=== PATIENT | male | born 1960 | race Caucasian/White ===

== ENCOUNTER 2025-03-16 17:42 | Emergency (ER) | payer MEDICARE, OTHER, SELFPAY ==
--- OUTSIDE RECORDS SUMMARY | 2003-07-04 19:00 | XMS_ITS | Continuity of Care Document ---
Author Name [facility] Address [address] [place] [address] Organization [facility] Care Team Providers Care Lens Blank Gauger Name Role Phone [facility] Unavailable Unavailable Problems Problem Status Onset Date Problem Type Date of Resolution Comments Source Atrial fibrillation (disorder) Active Condition Body mass index index 25-29 - overweight (finding) Active Condition Erectile dysfunction Active Condition History of - atrial fibrillation (context-dependent category) Active Condition Hyperlipidemia (disorder) Active Condition Patient encounter status (finding) Active Condition History of polyp of colon (situation) Active Condition 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
--- OUTSIDE RECORDS SUMMARY | 2023-09-22 02:30 | XMS_ITS ---
Author Organization [facility] Address [address] [place], [place] [id number] Care Team Providers Care Chainman Name Role Phone Titi Piña Primary Care Provider [phone] Maxime Dao [phone] Social History Sex Assigned At : Social History Observation Description Sex Assigned At Male Encounters Encounter Location Date Provider Diagnosis [facility] [address] [place] [address] 09/22/2023 Maxime Dao Plan Of Treatment Next Appt Details Provider Name:Maxime Dao, 06/05/2025 09:00:00 AM, [address] [place], [address], Progress Notes * Faina KEY HDOB:1959 (64 yo M)Acc No.[id number]:09/22/2023 Patient: Jennifer LOWEFaina NICKERSON Salvador Provider: Estevan Dao DMD :1960 A ge:63 Y S ex:Male Date:09/22/2023 Address:[address] [place] [id number] Pcp:Titi Piña Subjective: * Chief Complaints: * * Medical History: Objective: * Vitals: Assessment: Plan: * Treatment: * Billing Information: * Visit Code: * Procedure Codes: * Electronic signature of Bhupinder Dao DMD on 03/16/2025 at 06:02 PM CDT Sign off status: Pending * Provider: Estevan Dao DMD Date: 0 09/22/2023 Generated for Tasha Wills/Cristina on: 0 03/16/2025 06:02 PM CDT
--- OUTSIDE RECORDS SUMMARY | 2024-11-15 23:50 | XMS_ITS ---
Author Organization [facility] Address [address] [place], [place] [id number] Care Team Providers Care Double End Sewer Name Role Phone Titi Piña Primary Care Provider Maxime Dao [phone] Social History Sex Assigned At : Social History Observation Description Sex Assigned At Male Encounters Encounter Location Date Provider Diagnosis [facility] [address] [place] [address] 11/16/2024 Maxime Dao Plan Of Treatment Next Appt Details Provider Name:Maxime Dao, 06/05/2025 09:00:00 AM, [address] [place], [address], Progress Notes * Faina KEY HDOB:1959 (64 yo M)Acc No.[id number]:11/16/2024 Patient: Jennifer LOWEFaina NICKERSON Provider: Estevan Dao DMD :1960 A ge:64 Y S ex:Male Date:11/16/2024 Address:[address] [place] [phone] Pcp:Titi Piña Subjective: * Chief Complaints: * * Medical History: Objective: * Vitals: Assessment: Plan: * Treatment: * Billing Information: * Visit Code: * Procedure Codes: * Electronic signature of Bhupinder Dao DMD on 03/16/2025 at 06:02 PM CDT Sign off status: Pending * Provider: Estevan Dao DMD Date: 0 11/16/2024 Generated for Tasha Wills/Cristina on: 0 03/16/2025 06:02 PM CDT
--- OUTSIDE RECORDS SUMMARY | 2024-12-06 02:00 | XMS_ITS ---
Author Organization [facility] Address [address] [place], [place] [address] Care Team Providers Care Helmet Binder Name Role Phone Titi Piña Primary Care Provider [phone] Maxime Dao [phone] Social History Sex Assigned At : Social History Observation Description Sex Assigned At Male Encounters Encounter Location Date Provider Diagnosis [facility] [address] [place] [address] 12/06/2024 Maxime Dao Plan Of Treatment Next Appt Details Provider Name:Maxime Dao, 06/05/2025 09:00:00 AM, [address] [place], [address], Progress Notes * Faina KEY HDOB:1959 (64 yo M)Acc No.[id number]:12/06/2024 Patient: Jennifer LOWEFaina NICKERSON Provider: Estevan Dao DMD :1960 A ge:64 Y S ex:Male Date:12/06/2024 Address:[address] [place] [phone] Pcp:Titi Piña Subjective: * Chief Complaints: * * Medical History: Objective: * Vitals: Assessment: Plan: * Treatment: * Billing Information: * Visit Code: * Procedure Codes: * Electronic signature of Bhupinder Dao DMD on 03/16/2025 at 06:02 PM CDT Sign off status: Pending * Provider: Estevan Dao DMD Date: 12/06/2024 Generated for Tasha Wills/Cristina on: 0 03/16/2025 06:02 PM CDT
[2025-03-16] VITALS (7 sets, daily range): BP systolic 114–138; BP diastolic 68–83; PULSE 98–106; RESP 16–18; TEMP 37.2; O2SAT 96–99
--- NOTE | 2025-03-16 17:49 | CTR_ITS ---
PROCEDURE INFORMATION: Exam: CT Cervical Spine Without Contrast Exam date and time: 03/16/2025 6:02 PM Age: 64 years old Clinical indication: Injury or trauma; Syncope with fall from standing. TECHNIQUE: Imaging protocol: Computed tomography of the cervical spine without contrast. Radiation optimization: All CT scans at this facility use at least one of these dose optimization techniques: automated exposure control; mA and/or kV adjustment per patient size (includes targeted exams where dose is matched to clinical indication); or iterative reconstruction. COMPARISON: CR (CHEST, ) 03/16/2025 5:56 PM RADIATION DOSE METRICS: Total DLP (mGy-cm): 228.7 FINDINGS: Bones: No acute fracture. Normal alignment. Multilevel degenerative changes in the cervical spine with facet arthropathy, uncovertebral hypertrophy and mild multilevel disc height loss. There is up to mild spinal canal narrowing at the C5-C6 level. There is up to severe neural foraminal narrowing of the right C3-C4 neural foramen. Multilevel moderate neural foraminal narrowing. Lungs: Lung apices are normal. Soft tissues: 2.1 cm right thyroid nodule. CT/CT cervical spin wo con* [id number] IMPRESSION: 1. No acute cervical spine fracture. 2. There is a 2.1 cm right thyroid nodule. Recommend further evaluation with dedicated thyroid ultrasound if not previously completed. COMMENTS: Consistent with the [employer]'s Incidental Findings Committee white paper (J Am Mariola Radiol 2015): In patients aged 35 years and older with an incidental thyroid nodule equal to or greater than 1.[address], MRI or extrathyroidal US, further evaluation with dedicated thyroid US is recommended for patients with normal life expectancy and without comorbidities. For smaller nodules without suspicious features, no further evaluation or follow up is recommended.
--- NOTE | 2025-03-16 17:50 | CTR_ITS ---
PROCEDURE INFORMATION: Exam: CT Head Without Contrast Exam date and time: 03/16/2025 6:02 PM Age: 64 years old Clinical indication: Injury or trauma; Syncope with fall from standing. TECHNIQUE: Imaging protocol: Computed tomography of the head without contrast. Radiation optimization: All CT scans at this facility use at least one of these dose optimization techniques: automated exposure control; mA and/or kV adjustment per patient size (includes targeted exams where dose is matched to clinical indication); or iterative reconstruction. COMPARISON: CT cervical spin wo con* [id number] 03/16/2025 6:02 PM RADIATION DOSE METRICS: Total DLP (mGy-cm): 1179.68 FINDINGS: Brain: There is a 5 mm hyperattenuating focus in the left frontal white matter with surrounding hypoattenuation. No loss of funk-white differentiation. No mass effect. Cerebral ventricles: No ventriculomegaly. Paranasal sinuses: Visualized sinuses are unremarkable. No fluid levels. Mastoid air cells: Visualized mastoid air cells are well aerated. Bones: Unremarkable. No acute fracture. Soft tissues: Unremarkable. CT/CT head wo con* [id number] IMPRESSION: There is a 5 mm hyperattenuating focus in the left frontal white matter with surrounding hypoattenuation. This is indeterminate on CT. Differential includes small hemorrhage with surrounding edema, cavernous malformation, or underlying hemorrhagic neoplasm/metastasis. Recommend MRI brain with and without contrast for further characterization.
--- NOTE | 2025-03-16 17:51 | ED_ITS ---
Documented by User: LUCIANA Montes De Oca 03/16/25 22:18 HPI - Syncope 2 General: Chief Complaint: Syncope Stated Complaint: syncopal episode Time Seen by Provider: 03/16/25 17:48 History of Present Illness: Patient is a 64-year-old male with history of previous atrial fibrillation, status post ablation, presents to the emergency room due to full syncope, extended for 10-15 minutes. Patient was cooking in his camper up to the water and sewage, when bystanders noted he had a full LOC, estimated to be 10-15 minutes. Patient does not recall the events, and stated he did not have dizziness, lightheadedness, or any other symptoms such as chest pain, recent cold or illness, nausea, vomiting. He stated he was hooking up the lines for his camper, and then was on the ground. He is unsure how he fell. He does not have a complaints of any pain at this time. Patient has not had further issues with his A-fib since ablation. He is on sildenafil for ED, with last dose just over 2 days ago. PFSH ED 2 PFSH: Medical History (Updated 03/16/25 @ 18:41 by Suman Cherry DO) Atrial fibrillation Course 2 Vital Signs: Vital signs: Vital Signs Temperature 98.9 F 03/16/25 17:49 Pulse Rate 98 03/16/25 20:56 Respiratory Rate 16 03/16/25 20:56 Blood Pressure 121/78 03/16/25 20:56 Pulse Oximetry 99 03/16/25 20:56 Oxygen Delivery Me thod Room Air 03/16/25 20:56 MDM - Syncope Lab Data 03/16/25 18:17 03/16/25 18:17 Radiology Impressions Cervical Spine CT 03/16/25 17:49 IMPRESSION: 1. No acute cervical spine fracture. 2. There is a 2.1 cm right thyroid nodule. Recommend further evaluation with dedicated thyroid ultrasound if not previously completed. COMMENTS: Consistent with the [employer]'s Incidental Findings Committee white paper (J Am Mariola Radiol 2015): In patients aged 35 years and older with an incidental thyroid nodule equal to or greater than 1.[address], MRI or extrathyroidal US, further evaluation with dedicated thyroid US is recommended for patients with normal life expectancy and without comorbidities. For smaller nodules without suspicious features, no further evaluation or follow up is recommended. Head CT 03/16/25 17:50 IMPRESSION: There is a 5 mm hyperattenuating focus in the left frontal white matter with surrounding hypoattenuation. This is indeterminate on CT. Differential includes small hemorrhage with surrounding edema, cavernous malformation, or underlying hemorrhagic neoplasm/metastasis. Recommend MRI brain with and without contrast for further characterization. Chest X-Ray 03/16/25 17:55 IMPRESSION: No acute findings. Laboratory Results WBC 16.18 10^3/uL (3.29-11.43) H 03/16/25 18:17 RBC 4.08 10^6/uL (3.85-5.65) 03/16/25 18:17 Hgb 13.50 g/dL (11.27-16.99) 03/16/25 18:17 Hct 39.1 % (37-53) 03/16/25 18:17 MCV 95.8 fl (82-101) 03/16/25 18:17 MCH 33.1 pg (27-33) H 03/16/25 18:17 MCHC 34.5 g/dL (30-55) 03/16/25 18:17 RDW 12.4 % (12.1-15.1) 03/16/25 18:17 Plt Count 258 10^3/cmm (157-399) 03/16/25 18:17 MPV 9.2 fL (7.4-10.4) 03/16/25 18:17 Neut % (Auto) 86.7 % 03/16/25 18:17 Lymph % (Auto) 6.7 % 03/16/25 18:17 [place] % (Auto) 5.8 % 03/16/25 18:17 Eos % (Auto) 0.2 % 03/16/25 18:17 Baso % (Auto) 0.2 % 03/16/25 18:17 Neut # (Auto) 14.00 10^3/uL (1.8-7.7) H 03/16/25 18:17 Lymph # (Auto) 1.1 10^3/uL (0.8-4.8) 03/16/25 18:17 [place] # (Auto) 0.9 10^3/uL (0.2-0.9) 03/16/25 18:17 Eos # (Auto) 0.0 10^3/uL (0.0-0.8) 03/16/25 18:17 Baso # (Auto) 0.0 10^3/uL (0.0-0.1) 03/16/25 18:17 Nucleated RBC % (auto) 0 % 03/16/25 18:17 Nucleated RBCs # 0.0 /100WBC 03/16/25 18:17 Sodium 139 mmol/L (136-145) 03/16/25 18:17 Potassium 3.8 mmol/L (3.5-5.1) 03/16/25 18:17 Chloride 105 mmol/L (98-107) 03/16/25 18:17 Carbon Dioxide 22 mmol/L (22-29) 03/16/25 18:17 Anion Gap 15.8 (5-19) 03/16/25 18:17 BUN 17 mg/dL (8-23) 03/16/25 18:17 Creatinine 1.0 mg/dL (0.7-1.2) 03/16/25 18:17 GFR Calculation 74.8 mL/min (90-130) L 03/16/25 18:17 Glucose 103 mg/dL (65-115) 03/16/25 18:17 Calculated Osmolality 290 mOsm/kg (285-295) 03/16/25 18:17 Lactic Acid 2.1 mmol/L (0.5-2.2) 03/16/25 18:17 Lactic Acid (Sepsis) 0.7 mmol/L (0.5-2.2) 03/16/25 21:17 Calcium 9.2 mg/dL (8.5-10.5) 03/16/25 18:17 Magnesium 2.8 mg/dL (1.7-2.3) H 03/16/25 18:17 Total Bilirubin 0.3 mg/dL (0.15-1.2) 03/16/25 18:17 AST 22 U/L (0-40) 03/16/25 18:17 ALT 25 U/L (0-41) 03/16/25 18:17 Alkaline Phosphatase 72 U/L (40-130) 03/16/25 18:17 Creatine Kinase 114 U/L (39-308) 03/16/25 18:17 Troponin T Baseline 8 ng/L (0-15) 03/16/25 18:17 Troponin T 120 Minute 11.12 ng/L (0-15) 03/16/25 20:07 Delta Troponin T 3.12 ABS# (0-10) 03/16/25 20:07 Total Protein 7.2 g/dL (6.6-8.7) 03/16/25 18:17 Albumin 4.6 g/dL (3.5-5.2) 03/16/25 18:17 Globulin 2.6 g/dL (1.3-4.6) 03/16/25 18:17 TSH 2.26 uIU/mL (0.27-4.20) 03/16/25 18:17 Discharge Plan Discharge Patient Disposition: Xfer Short-Term Hosp Clinical Impression: Syncope and collapse Condition: Stable Print Language: French Coding Level of Care Code ED Ell Teacher for Chg Fwd Documented by User: Suman Cherry DO 03/17/25 07:23 HPI - Syncope 2 General: Chief Complaint: Syncope Stated Complaint: syncopal episode Time Seen by Provider: 03/16/25 17:48 History of Present Illness: 64-year-old male presents emergency room via EMS. He had a syncopal episode while he was setting up a camper this afternoon. He had a downtime of around 10+ minutes. He admitted bending over standing up working on setting up a camper when he suddenly lost consciousness he does not recall what happened. Does not recall if he hit his head. He denies any chest or abdominal pain. He has not recently been ill. He states he has not had episodes like this before he has had a previous episode atrial fibrillation and had ablation. He is on multiple medications no changes recently. Associated symptoms: Deny abdominal pain, chest pain or fever(s) Review of Systems 2 Const: Denies: fever(s) or chills Card: Denies: chest pain Resp: Denies: dyspnea GI: Denies: abdominal pain Musc: Denies: neck pain or back pain Skin/Breast: Denies: rash PFSH ED 2 PFSH: Medical History (Updated 03/16/25 @ 18:41 by Suman Cherry DO) Atrial fibrillation Physical Exam 2 Const: GENERAL APPEARANCE: cooperative ORIENTATION/CONSCIOUSNESS: Yes awake, Yes oriented to person, Yes oriented to place and Yes oriented to time HENMT: COMMON NORMALS: normocephalic, atraumatic and hearing grossly normal bilaterally HEAD & SCALP: normocephalic and atraumatic Resp: COMMON NORMALS: normal respiratory effort, No retractions, No use of accessory muscles and clear to auscultation bilaterally AUSCULTATION: clear to auscultation bilaterally Cardio: COMMON NORMALS: regular rate, regular rhythm and No murmurs present (Cardio) RATE: regular rate RHYTHM: regular rhythm GI: COMMON NORMALS: Soft to palpation and No hepatosplenomegaly present A USCULTATION: Yes normoactive bowel sounds PALPATION: Yes Soft to palpation, No Tenderness to palpation present (GI), No Guarding due to palpation present (GI) and Yes No hepatosplenomegaly present Extremity: COMMON NORMALS: normal to inspection, capillary refill normal, no clubbing, cyanosis or edema, no calf tenderness and no pedal edema Neuro: SENSORIUM/ORIENTATION: Yes oriented to person, Yes oriented to place and Yes oriented to time Skin: COMMON NORMALS: no rashes or lesions noted GENERAL SKIN EXAM: no rashes or lesions noted Course 2 Vital Signs: Vital signs: Vital Signs Temperature 98.9 F 03/16/25 17:49 Pulse Rate 98 03/16/25 20:56 Respiratory Rate 16 03/16/25 20:56 Blood Pressure 121/78 03/16/25 20:56 Pulse Oximetry 99 03/16/25 20:56 Oxygen Delivery Me thod Room Air 03/16/25 20:56 MDM - Syncope Medical Decision Making Patient never had a postictal phase no believe he had a seizure. His mention that he was hooking up electricity was no entrance or exit wounds of electrical robin and no believe that was the case he had been bending over and standing up quite a bit is possible he simply had a vasovagal orthostatic episode. Seems little unusual he was down along he has not had any chest pain to this point. Imaging pending placement observation to further evaluate. Patient is agreeable. 64-year-old gentleman checked out to me at shift change. CT shows a 5 mm area of hyperattenuation in the left frontal lobe with some surrounding hypoattenuation. MRI is suggested to rule out small acute hemorrhage. We have no availability of MRI this weekend. We have no neurology in house. I spoke with neurology at [facility], recommendations are blood pressure less than 140/90, transfer to their ER for emergent MRI of the brain, CTA of the head and neck, and neurology versus neurosurgery consultation. The patient is agreeable to transfer. My counterpart in the ER accepts Medical Records I reviewed the patient's medical records. Lab Data I reviewed the patient's lab results. 03/16/25 18:17 03/16/25 18:17 Radiology Impressions Cervical Spine CT 03/16/25 17:49 IMPRESSION: 1. No acute cervical spine fracture. 2. There is a 2.1 cm right thyroid nodule. Recommend further evaluation with dedicated thyroid ultrasound if not previously completed. COMMENTS: Consistent with the [employer] [employer]'s Incidental Findings Committee white paper (J Am Mariola Radiol 2015): In patients aged 35 years and older with an incidental thyroid nodule equal to or greater than 1.[address], MRI or extrathyroidal US, further evaluation with dedicated thyroid US is recommended for patients with normal life expectancy and without comorbidities. For smaller nodules without suspicious features, no further evaluation or follow up is recommended. Head CT 03/16/25 17:50 IMPRESSION: There is a 5 mm hyperattenuating focus in the left frontal white matter with surrounding hypoattenuation. This is indeterminate on CT. Differential includes small hemorrhage with surrounding edema, cavernous malformation, or underlying hemorrhagic neoplasm/metastasis. Recommend MRI brain with and without contrast for further characterization. Chest X-Ray 03/16/25 17:55 IMPRESSION: No acute findings. Laboratory Results WBC 16.18 10^3/uL (3.29-11.43) H 03/16/25 18:17 RBC 4.08 10^6/uL (3.85-5.65) 03/16/25 18:17 Hgb 13.50 g/dL (11.27-16.99) 03/16/25 18:17 Hct 39.1 % (37-53) 03/16/25 18:17 MCV 95.8 fl (82-101) 03/16/25 18:17 MCH 33.1 pg (27-33) H 03/16/25 18:17 MCHC 34.5 g/dL (30-55) 03/16/25 18:17 RDW 12.4 % (12.1-15.1) 03/16/25 18:17 Plt Count 258 10^3/cmm (157-399) 03/16/25 18:17 MPV 9.2 fL (7.4-10.4) 03/16/25 18:17 Neut % (Auto) 86.7 % 03/16/25 18:17 Lymph % (Auto) 6.7 % 03/16/25 18:17 [place] % (Auto) 5.8 % 03/16/25 18:17 Eos % (Auto) 0.2 % 03/16/25 18:17 Baso % (Auto) 0.2 % 03/16/25 18:17 Neut # (Auto) 14.00 10^3/uL (1.8-7.7) H 03/16/25 18:17 Lymph # (Auto) 1.1 10^3/uL (0.8-4.8) 03/16/25 18:17 [place] # (Auto) 0.9 10^3/uL (0.2-0.9) 03/16/25 18:17 Eos # (Auto) 0.0 10^3/uL (0.0-0.8) 03/16/25 18:17 Baso # (Auto) 0.0 10^3/uL (0.0-0.1) 03/16/25 18:17 Nucleated RBC % (auto) 0 % 03/16/25 18:17 Nucleated RBCs # 0.0 /100WBC 03/16/25 18:17 Sodium 139 mmol/L (136-145) 03/16/25 18:17 Potassium 3.8 mmol/L (3.5-5.1) 03/16/25 18:17 Chloride 105 mmol/L (98-107) 03/16/25 18:17 Carbon Dioxide 22 mmol/L (22-29) 03/16/25 18:17 Anion Gap 15.8 (5-19) 03/16/25 18:17 BUN 17 mg/dL (8-23) 03/16/25 18:17 Creatinine 1.0 mg/dL (0.7-1.2) 03/16/25 18:17 GFR Calculation 74.8 mL/min (90-130) L 03/16/25 18:17 Glucose 103 mg/dL (65-115) 03/16/25 18:17 Calculated Osmolality 290 mOsm/kg (285-295) 03/16/25 18:17 Lactic Acid 2.1 mmol/L (0.5-2.2) 03/16/25 18:17 Lactic Acid (Sepsis) 0.7 mmol/L (0.5-2.2) 03/16/25 21:17 Calcium 9.2 mg/dL (8.5-10.5) 03/16/25 18:17 Magnesium 2.8 mg/dL (1.7-2.3) H 03/16/25 18:17 Total Bilirubin 0.3 mg/dL (0.15-1.2) 03/16/25 18:17 AST 22 U/L (0-40) 03/16/25 18:17 ALT 25 U/L (0-41) 03/16/25 18:17 Alkaline Phosphatase 72 U/L (40-130) 03/16/25 18:17 Creatine Kinase 114 U/L (39-308) 03/16/25 18:17 Troponin T Baseline 8 ng/L (0-15) 03/16/25 18:17 Troponin T 120 Minute 11.12 ng/L (0-15) 03/16/25 20:07 Delta Troponin T 3.12 ABS# (0-10) 03/16/25 20:07 Total Protein 7.2 g/dL (6.6-8.7) 03/16/25 18:17 Albumin 4.6 g/dL (3.5-5.2) 03/16/25 18:17 Globulin 2.6 g/dL (1.3-4.6) 03/16/25 18:17 TSH 2.26 uIU/mL (0.27-4.20) 03/16/25 18:17 Discharge Plan Discharge Patient Disposition: Xfer Short-Term Hosp Clinical Impression: Syncope and collapse Condition: Stable Print Language: French Coding Level of Care Code ED Ell Teacher for Chg Fwd Documented by User: Eagle Camara DO 03/16/25 22:32 HPI - Syncope 2 General: Chief Complaint: Syncope Stated Complaint: syncopal episode Time Seen by Provider: 03/16/25 17:48 PFSH ED 2 PFSH: Medical History (Updated 03/16/25 @ 18:41 by Suman Cherry DO) Atrial fibrillation Course 2 Vital Signs: Vital signs: Vital Signs Temperature 98.9 F 03/16/25 17:49 Pulse Rate 98 03/16/25 20:56 Respiratory Rate 16 03/16/25 20:56 Blood Pressure 121/78 03/16/25 20:56 Pulse Oximetry 99 03/16/25 20:56 Oxygen Delivery Me thod Room Air 03/16/25 20:56 MDM - Syncope Medical Decision Making Patient never had a postictal phase no believe he had a seizure. His mention that he was hooking up electricity was no entrance or exit wounds of electrical robin and no believe that was the case he had been bending over and standing up quite a bit is possible he simply had a vasovagal orthostatic episode. Seems little unusual he was down along he has not had any chest pain to this point. Placement observation to further evaluate. Patient is agreeable. 64-year-old gentleman checked out to me at shift change. CT shows a 5 mm area of hyperattenuation in the left frontal lobe with some surrounding hypoattenuation. MRI is suggested to rule out small acute hemorrhage. We have no availability of MRI this weekend. We have no neurology in house. I spoke with neurology at [facility], recommendations are blood pressure less than 140/90, transfer to their ER for emergent MRI of the brain, CTA of the head and neck, and neurology versus neurosurgery consultation. The patient is agreeable to transfer. My counterpart in the ER accepts Lab Data 03/16/25 18:17 03/16/25 18:17 Radiology Impressions Cervical Spine CT 03/16/25 17:49 IMPRESSION: 1. No acute cervical spine fracture. 2. There is a 2.1 cm right thyroid nodule. Recommend further evaluation with dedicated thyroid ultrasound if not previously completed. COMMENTS: Consistent with the [employer] [employer]'s Incidental Findings Committee white paper (J Am Mariola Radiol 2015): In patients aged 35 years and older with an incidental thyroid nodule equal to or greater than 1.[address], MRI or extrathyroidal US, further evaluation with dedicated thyroid US is recommended for patients with normal life expectancy and without comorbidities. For smaller nodules without suspicious features, no further evaluation or follow up is recommended. Head CT 03/16/25 17:50 IMPRESSION: There is a 5 mm hyperattenuating focus in the left frontal white matter with surrounding hypoattenuation. This is indeterminate on CT. Differential includes small hemorrhage with surrounding edema, cavernous malformation, or underlying hemorrhagic neoplasm/metastasis. Recommend MRI brain with and without contrast for further characterization. Chest X-Ray 03/16/25 17:55 IMPRESSION: No acute findings. Laboratory Results WBC 16.18 10^3/uL (3.29-11.43) H 03/16/25 18:17 RBC 4.08 10^6/uL (3.85-5.65) 03/16/25 18:17 Hgb 13.50 g/dL (11.27-16.99) 03/16/25 18:17 Hct 39.1 % (37-53) 03/16/25 18:17 MCV 95.8 fl (82-101) 03/16/25 18:17 MCH 33.1 pg (27-33) H 03/16/25 18:17 MCHC 34.5 g/dL (30-55) 03/16/25 18:17 RDW 12.4 % (12.1-15.1) 03/16/25 18:17 Plt Count 258 10^3/cmm (157-399) 03/16/25 18:17 MPV 9.2 fL (7.4-10.4) 03/16/25 18:17 Neut % (Auto) 86.7 % 03/16/25 18:17 Lymph % (Auto) 6.7 % 03/16/25 18:17 [place] % (Auto) 5.8 % 03/16/25 18:17 Eos % (Auto) 0.2 % 03/16/25 18:17 Baso % (Auto) 0.2 % 03/16/25 18:17 Neut # (Auto) 14.00 10^3/uL (1.8-7.7) H 03/16/25 18:17 Lymph # (Auto) 1.1 10^3/uL (0.8-4.8) 03/16/25 18:17 [place] # (Auto) 0.9 10^3/uL (0.2-0.9) 03/16/25 18:17 Eos # (Auto) 0.0 10^3/uL (0.0-0.8) 03/16/25 18:17 Baso # (Auto) 0.0 10^3/uL (0.0-0.1) 03/16/25 18:17 Nucleated RBC % (auto) 0 % 03/16/25 18:17 Nucleated RBCs # 0.0 /100WBC 03/16/25 18:17 Sodium 139 mmol/L (136-145) 03/16/25 18:17 Potassium 3.8 mmol/L (3.5-5.1) 03/16/25 18:17 Chloride 105 mmol/L (98-107) 03/16/25 18:17 Carbon Dioxide 22 mmol/L (22-29) 03/16/25 18:17 Anion Gap 15.8 (5-19) 03/16/25 18:17 BUN 17 mg/dL (8-23) 03/16/25 18:17 Creatinine 1.0 mg/dL (0.7-1.2) 03/16/25 18:17 GFR Calculation 74.8 mL/min (90-130) L 03/16/25 18:17 Glucose 103 mg/dL (65-115) 03/16/25 18:17 Calculated Osmolality 290 mOsm/kg (285-295) 03/16/25 18:17 Lactic Acid 2.1 mmol/L (0.5-2.2) 03/16/25 18:17 Lactic Acid (Sepsis) 0.7 mmol/L (0.5-2.2) 03/16/25 21:17 Calcium 9.2 mg/dL (8.5-10.5) 03/16/25 18:17 Magnesium 2.8 mg/dL (1.7-2.3) H 03/16/25 18:17 Total Bilirubin 0.3 mg/dL (0.15-1.2) 03/16/25 18:17 AST 22 U/L (0-40) 03/16/25 18:17 ALT 25 U/L (0-41) 03/16/25 18:17 Alkaline Phosphatase 72 U/L (40-130) 03/16/25 18:17 Creatine Kinase 114 U/L (39-308) 03/16/25 18:17 Troponin T Baseline 8 ng/L (0-15) 03/16/25 18:17 Troponin T 120 Minute 11.12 ng/L (0-15) 03/16/25 20:07 Delta Troponin T 3.12 ABS# (0-10) 03/16/25 20:07 Total Protein 7.2 g/dL (6.6-8.7) 03/16/25 18:17 Albumin 4.6 g/dL (3.5-5.2) 03/16/25 18:17 Globulin 2.6 g/dL (1.3-4.6) 03/16/25 18:17 TSH 2.26 uIU/mL (0.27-4.20) 03/16/25 18:17 All radiology interpretation(s) finalized by discharge Discharge Plan Discharge Patient Disposition: Xfer Short-Term Hosp Clinical Impression: Syncope and collapse Condition: Stable Print Language: French Coding Level of Care Code ED Ell Teacher for Ida Sun
--- NOTE | 2025-03-16 17:55 | XRR_ITS ---
PROCEDURE INFORMATION: Exam: XR Chest Exam date and time: 03/16/2025 5:56 PM Age: 64 years old Clinical indication: Other: Passed out for about 10 minutes TECHNIQUE: Imaging protocol: Radiologic exam of the chest. Views: 1 view. COMPARISON: No relevant prior studies available. FINDINGS: Lungs: Unremarkable. No consolidation. Pleural spaces: Unremarkable. No pleural effusion. No pneumothorax. Heart/Mediastinum: Unremarkable. No cardiomegaly. Bones/joints: Unremarkable. XR/XR chest 1V portable [id number] IMPRESSION: No acute findings.
--- OUTSIDE RECORDS SUMMARY | 2025-03-16 18:03 | XMS_ITS | Clinical Summary ---
Author Organization [facility] Address [address] [place] [address] Care Team Providers Care Ccie Name Role Phone Roseann Kellogg Primary Care Provider Allergies No known active allergies Medications flecainide (TAMBOCOR) 150 mg tablet take 1 tablet (150MG) by oral route every 12 hours 0 12/16/19 12 Active multivitamin tablet tablet take 1 tablet by oral route every day with food 0 12/09/19 13 Active aspirin 325 mg tablet Take 325 mg by mouth daily. Active CARTIA XT 120 mg 24 hr capsule 02/09/20 17 Active cholecalciferol (VITAMIN D-3) 5,000 unit tablet Active sildenafiL, pulm.hypertension, (REVATIO) 20 mg tabletIndications:Other male erectile dysfunction 1 tab by mouth 1 hour prior to need prn. 50 tablet 11 06/25/20 20 Active pravastatin (PRAVACHOL) 40 mg tabletIndications:At risk for cardiovascular event,Pure hypercholesterolemia Take 1 tablet (40 mg total) by mouth daily 90 tablet 3 08/08/19 21 Active famotidine (PEPCID) 20 mg tabletIndications:Gastro esophageal reflux disease without esophagitis Take 1 tablet (20 mg total) by mouth 2 (two) times a day 60 tablet 3 08/22/19 21 Active Active Problems Problem Noted Date Diagnosed Date Other male erectile dysfunction 07/01/2020 Assessment & Plan (07/01/2020 8:18 AM DIRECTOR VIDEO): Refill provided today. At risk for cardiovascular event 07/01/2020 Macrocytosis 07/01/2020 History of skin cancer 06/24/2020 Assessment & Plan (07/01/2020 8:18 AM DIRECTOR VIDEO): Reminded patient with hx of skin cancer, he should have yearly skin exam by dermatology. He will set this up. Class 1 obesity due to exces s calories with serious comorbidity and body mass index (BMI) of 30.0 to 30.9 in adult 02/05/2017 Assessment & Plan (07/01/2020 8:15 AM DIRECTOR VIDEO): BMI Follow-up includes: nutrition counseling, exercise counseling and education provided. Assessment & Plan (05/05/2019 7:16 AM CDT): Your current BMI is 30.3, fully clothed. We have discussed carbohydrate awareness, portion control and used visual aids in describing those interventions. You took a cell phone photo of the aids so that you could review them later. Assessment & Plan (02/17/2017 7:51 AM CDT): Obesity is unchanged. Discussed the patient's BMI. The BMI is above average; BMI management plan is completed. General weight loss/lifestyle modification strategies discussed (elicit support from others; identify saboteurs; non-food rewards, etc). Assessment & Plan (02/05/2017 11:40 AM CDT): Obesity is worsening. Discussed the patient's BMI. The BMI is above average; BMI management plan is completed. General weight loss/lifestyle modification strategies discussed (elicit support from others; identify saboteurs; non-food rewards, etc). Reassess in 6 months. Tinnitus 11/18/2013 Overview (06/24/2020): Assessment & Plan (07/01/2020 8:14 AM DIRECTOR VIDEO): Stable. No worsening. CCM. Patient to consider establishing with ENT/audiology for further assessment. Assessment & Plan (05/05/2019 7:15 AM CDT): I think audiometric assessment is prudent and you have that on your plan. Assessment & Plan (02/17/2017 7:52 AM CDT): You have this evaluated but further evaluation might yet be appropriate. We have discussed frequency evaluation and therapy. Current smoker 11/18/2013 Overview (06/24/2020): Assessment & Plan (07/01/2020 8:15 AM DIRECTOR VIDEO): Smoking cessation advised. Assessment & Plan (05/05/2019 7:12 AM CDT): I advise you to quit smoking even if it is just an occasional cigar. It increases your risk of head neck cancer particularly when associated with regular alcohol use. Assessment & Plan (02/17/2017 7:49 AM CDT): You must quit smoking. It will kill you sooner or later. We have offered you assistance in your resolution of his problem. Hyperlipidemia Assessment & Plan (07/01/2020 8:16 AM DIRECTOR VIDEO): Currently on pravastatin 40 mg every day. Discussed ASCVD with last check was 9.5%. Re-eval today with lipid panel. History of colon polyps Overview (06/24/2020): 06/2019 - cscope - tubular adenoma Assessment & Plan (07/01/2020 8:17 AM DIRECTOR VIDEO): Cscope last year with tubular adenoma. Patient believes he was told to repeat in 10 years, however upon review of chart, should probably repeat in 5 years. Regardless, he is up to date currently. He should receive communication from his colonoscopy provider when he comes due. We will keep his HM at 5 year interval and follow up with them at that time. GERD (gastroesophageal reflux disease) Assessment & Plan (07/01/2020 8:17 AM DIRECTOR VIDEO): Consider trial without PPI. Atrial fibrillation Assessment & Plan (07/01/2020 8:18 AM DIRECTOR VIDEO): Stable. Managed by cardiology. Low risk - not on anticoagulation. Remains on aspirin, flecainide, cartia. Resolved Problems Problem Noted Date Diagnosed Date Resolved Date Asymptomatic microscopic hematuria 05/04/2019 07/01/2020 Assessment & Plan (07/01/2020 8:15 AM DIRECTOR VIDEO): Re-evaluate today. Assessment & Plan (05/05/2019 7:14 AM CDT): While you had this for some time it is present in both the microscopic and dipstick samples indicating the need for further evaluation by Urology, in my judgment. We have talked about the fact that it might be benign but could also be bladder cancer or other urologic cancer in early stages. Early stages can turn to progressive invasive disease if neglected. Referral has been offered. Encounter for general adult medical examination with abnormal findings 02/16/201706/24 Overview (02/17/2017): Your significantly overweight. You need to lose at least 15-20 lb. You should also quit smoking. You have ongoing problems with her shoulder which we are working to resolve. Assessment & Plan (05/05/2019 7:03 AM CDT): 1. You remain technically obese with a body mass index of 30.3, fully clothed. Carbohydrate awareness, portion control and follow-up in 6 months is recommended. 2. You have had an intercurrent episode of atrial fibrillation which spontaneously resolved. Please continue your full dose aspirin your Tambocor, your diltiazem, and your pravastatin. 3. Your tinnitus continues and you are entertaining an audiometric evaluation and hearing aid assistance. 4. The lesion on your right chest wall that we saw on your last visit proved to be a skin cancer and has been excised. 5. Carbohydrate awareness and portion control educational materials have been provided to you. 6. Your given a standard dose flu vaccine today and you will get your ShingRix vaccine through your local pharmacy. 7. 3 beers a day is probably a bit excessive and I would recommend you limited to no more than 2. 8. You have been scheduled for a colon cancer screening colonoscopy. 9. You continue to have asymptomatic traces of blood in your urine. While this may be benign, we cannot be sure of that and urology referral has again been offered. 10. Please be sure that you have an advanced directive and a code designation status in your electronic health record and be sure to have your eyes examined yearly, your teeth examined yearly and when you finally retire stay physically and emotionally active! Assessment & Plan (03/17/2018 1:23 PM CDT): 1. Your vital signs appear to be normal with the exception of your body mass index which approaches 31.5. This means you need to lose at least 15 lb of weight utilizing a diet with carbohydrate awareness, portion control, and regular judicious exercise. 2. Your tinnitus is unchanged and you do not request any further investigation at this time. 3. Getting up to urinate twice a night is relatively normal for your age category but you might consider a formal urology evaluation to exclude prostate enlargement and related problems. 4. I would advise you to eliminate all smoking. Even the occasional cigar has its risks. 5. I have recommended Dr. Vaibhav Denny as a potential manager surgical for your desire for refractive surgery. 6. It would be prudent for you to have a flu shot for the fall as well as a ShingRix vaccine for shingles protection. It looks as though you also need a PCV 13 pneumococcal immunization. 7. As I review the prescription I gave you for the immunizations I noticed in error in the listing of PPV 23 rather than PCV 13. I have called and left a message on your cell phone about this. I would recommend you repeat this process in 1 year. Assessment & Plan (02/17/2017 7:51 AM CDT): Please quit smoking. Please complete your orthopedic referral for shoulder pain evaluation and treatment. You are also significantly overweight and need to lose at least 15-20 lb. I would recommend you follow up with this in the next 6-12 months. I would recommend that you consider enrolling in a structured dietary and exercise program such as is available through [facility]. You will make those arrangements yourself or contact us if you need assistance. Left shoulder pain 02/04/2017 0 Overview (02/04/2017): 6 wks ago, while canoeing; felt a pop and has had off/on pain. Assessment & Plan (02/17/2017 7:51 AM CDT): Please compete your orthopedic evaluation as arranged. Assessment & Plan (02/04/2017 2:59 PM CDT): Orthopaedic evaluation. He will advise us of choice. Skin lesion of chest wall 02/04/2017 Overview (02/04/2017): Left anterior chest wall; about 3 cm slightly induration. Assessment & Plan (05/05/2019 7:13 AM CDT): This is proven to be malignant and has been addressed by your cable wirer. Yearly dermatology overview exams are strongly recommended. Assessment & Plan (02/04/2017 3:02 PM CDT): Likely this failure to resolve under Lotrimin and the duration of presence [over 2 years] suggests a malignancy. He is agreeable to a dermatology assessment. Other noninfectious otitis externa 02/13/2016 06/24/2020 Overview (10/08/2016): Non-infective otitis externa Urethritis 11/18/2013 06/24/2020 Overview (10/09/2016): URETHRITIS NEC Localized superficial swelling, mass, or lump 07/05/19 08 06/24/2020 Overview (10/09/2016): LOCAL SUPRFICIAL SWELLNG Cellulitis of lower extremity 07/05/2007 06/24/2020 Overview (10/09/2016): CELLULITIS OF LEG Immunizations Immunization Administration Dates Next Due Influenza, Quadrivalent, Spl it, Preservative Free, Intramuscular 04/09/2020,05/04/2019 Influenza, Unspecified 04/18/2020 Pfizer SARS-CoV-2 Monovalent Vaccination (12+ Yrs) PURPLE 10/08/2020,09/17/2020 Pneumococcal Polysaccharide PPV23 12/16/2011 Td, adsorbed 07/05/2008 Tdap 01/30/2016 Surgical History Surgery Date Site/Laterality Comments WISDOM TOOTH EXTRACTION ANKLE SURGERY screws placed INCISION AND DRAINAGE FOOT Toe (Great Toe, Right Foot) COLONOSCOPY 06/04/2019 - 07/04/2019 Dr. Curry - 4 mm polyp transverse colon - tubular adenoma CARDIAC CATHETERIZATION Medical History Medical History Date Comments Atrial fibrillation (HCC) Hyperlipidemia GERD (gastroesophageal reflux disease) History of colon polyps Current smoker 11/18/2013 Obesity (BMI 30-39.9) 02/05/2017 History of skin cancer 06/24/2020 Family History Medical History Relation Name Comments Other Father circulation pro blems; Heart disease Mother Heart disease; Diabetes Other Relation Name Status Comments Father Mother Other Social History Tobacco Use Types Packs/Day Years Used Date Smoking Tobacco: Some Days Cigarettes 0.4 2 Smokeless Tobacco: Never Comments:Smokes an occasiona l cigar - 06/2020 Alcohol Use Standard Drinks/Week Comments Yes 3 (1 standard drink = 0.6 oz pur e alcohol) PHQ-2 Answer Date Recorded PHQ-2 Total Score (If total score is 3 or more points, staff should administer the PHQ-9) 0 06/25/2020 Sex and Gender Information Value Date Recorded Sex Assigned at Not on file Legal Sex Male 12:02 AM DIRECTOR VIDEO Gender Identity Not on file Sexual Orientation Not on file Obstetrics History Last Filed Vital Signs Vital Sign Reading Time Taken Comments Blood Pressure 110/68 06/25/2020 7:57 AM DIRECTOR VIDEO Pulse 72 06/25/2020 7:57 AM DIRECTOR VIDEO Temperature 35.8 C (96.4 F) 06/25/2020 7:57 AM DIRECTOR VIDEO Respiratory Rate 12 06/25/2020 7:57 AM DIRECTOR VIDEO Oxygen Saturation 97% 06/25/2020 7:57 AM DIRECTOR VIDEO Inhaled Oxygen Concentration - - Weight 97.3 kg (214 lb 9.6 oz) 06/25/2020 7:57 A M DIRECTOR VIDEO Height 177.8 cm (5' 10 ) 06/25/2020 7:57 AM DIRECTOR VIDEO Body Mass Index 30.79 06/25/2020 7:57 AM DIRECTOR VIDEO Plan of Treatment Not on file Insurance [employer] CHOICE Care Teams Ccie Relationship Specialty Start Date End Date Roseann Kellogg DO [address] [facility] [address] [place] [id number] PCP - General Family Medicine 07/01/20
--- OUTSIDE RECORDS SUMMARY | 2025-03-16 18:03 | XMS_ITS | Patient Health Record ---
Author Organization [facility] Address [address] [place], [place] [id number] Care Team Providers Care Crew Caller Name Role Phone Titi Piña Primary Care Provider Maxime Dao Unavailable [phone] Allergies No Known Allergies Reason For Referral No Information Medications Medication SIG (Take, Route, Fr equency, Duration) Notes Start Date End Date Status Pravastatin Sodium A ctive Multi For Him Active NexIUM Active Immunizations Vaccine Route Administration Date Status Comme nts FLULAVAL QUAD PF Unknown 04/07/2023 Administered Social History Sex Assigned At : Social History Observation Description Sex Assigned At Male Encounters Encounter Location Date Provider Diagnosis [facility] [address] [place] [address] 04/06/2024 Maxime Dao Encounter for denta l examination and cleaning with abnormal findings Z01.21 and Encounter for other procedures for purposes other than remedying health state Z41.8 [facility] [address] [place] [address] 09/20/2024 Maxime Dao Assessments Encounter Date Diagnosis (ICD Code) Assessment Notes Treatment Notes Treatment Clinical Notes Section Notes 04/06/2024 Encounter for dental examination and cleaning with abnormal findings (ICD-10 - Z01.21) 04/06/2024 Encounter for other procedures for purposes other than remedying health state (ICD-10 - Z41.8) Plan Of Treatment Next Appt Details Provider Name:Maxime Dao, 06/05/2025 09:00:00 AM, [address] [facility], [place], [address], Insurance Providers Payer Name Payer Address Payer Phone Subscriber Number Group Number Insured Name Patient Relationship to Insured Coverage Start Date Coverage End Date [facility] [address] [place] [address] [id number] Faina Serrato Self - patient is the insured [employer] ( Advantage Plan) [address] [address] [place] [address] [id number] Faina Serrato Self - patient is the insured Medical (General) History Medical History History ICD Code high cholestoral Atrial fibrillation Surgical History Surgery Date(Month/Year) a-fib
[2025-03-16 18:25] LABS: Hematocrit 39.1 % (37-53); Hemoglobin 13.50 g/dL (11.27-16.99); Mean Corpuscular HGB Conc 34.5 g/dL (30-55); Mean Corpuscular Hemoglobin 33.1 pg (27-33); Mean Corpuscular Volume 95.8 fl (82-101); Nucleated Red Blood Cells % 0 %; Platelet Count 258 10^3/cmm (157-399); Red Blood Count 4.08 10^6/uL (3.85-5.65); White Blood Count 16.18 10^3/uL (3.29-11.43)
--- NOTE | 2025-03-16 18:27 | ECG_ITS ---
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
[2025-03-16 18:59] LABS: Alanine Aminotransferase 25 U/L (0-41); Albumin Level 4.6 g/dL (3.5-5.2); Alkaline Phosphatase 72 U/L (40-130); Anion Gap 15.8 (5-19); Aspartate Amino Transferase 22 U/L (0-40); Blood Urea Nitrogen 17 mg/dL (8-23); Calcium 9.2 mg/dL (8.5-10.5); Carbon Dioxide 22 mmol/L (22-29); Chloride 105 mmol/L (98-107); Globulin 2.6 g/dL (1.3-4.6); Glucose 103 mg/dL (65-115); Magnesium 2.8 mg/dL (1.7-2.3); Osmolality Calculated 290 mOsm/kg (285-295); Potassium 3.8 mmol/L (3.5-5.1); Sodium 139 mmol/L (136-145); Thyroid Stimulating Hormone 2.26 uIU/mL (0.27-4.20); Total Protein 7.2 g/dL (6.6-8.7)
[2025-03-16 19:03] LABS: Lactic Sepsis W/Reflex 2.1 mmol/L (0.5-2.2)
[2025-03-16 19:12] LABS: Troponin(5th) Baseline 8 ng/L (0-15)
[2025-03-16 19:13] LABS: Reflex Lactate Order REFLEX LACTIC ORDERD
--- NOTE | 2025-03-16 19:43 | P.HP_ITS ---
Providers/Chief Complaint 2 Admitting Physician: Morris Lynn MD/ BOBBI DING--DO--patient seen before 12 midnight Chief Complaint: cyncopal episode History of Present Illness Faina Serrato is a 64 year old male PFSH Acute 2 PFSH: Medical History (Updated 03/16/25 @ 18:41 by Suman Cherry DO) Atrial fibrillation Vitals/I&O/Wt Last Vital Signs Temp 98.9 F 03/16/25 17:49 Pulse 104 H 03/16/25 19:00 Resp 18 03/16/25 19:00 BP 138/81 03/16/25 19:00 Pulse Ox 96 03/16/25 19:00 O2 Del Method Room Air 03/16/25 18:23 Data 03/16/25 18:17 03/16/25 18:17 A&P PDMP PDMP Reviewed: Not Reviewed Coding Level of Care Code Acute Code for Chg Fwd
--- NOTE | 2025-03-16 20:27 | ECG_ITS ---
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 Measurements Intervals [place] Rate: 96 P: 24 MI: 153 QRS: 11 QRSD: 101 T: 13 QT: 373 QTc: 472 Interpretive Statements SINUS RHYTHM MINIMAL VOLTAGE CRITERIA FOR LVH, CONSIDER NORMAL VARIANT [MEETS CRITERIA IN ONE OF: R(aVL), S(V1), R(V5), R(V5/V6)+S(V1)] INFERIOR MYOCARDIAL INFARCTION , PROBABLY OLD [40+ ms Q WAVE AND/OR ST/T ABNORMALITY IN II/aVF] Compared to ECG 03/16/2025 19:39:01 Sinus tachycardia no longer present Electronically Signed On 03-17-2025 20:40:15 CDT by Yosvany Vu M.D. [id number]
[2025-03-16 20:30] LABS: Troponin 5 2HR 11.12 ng/L (0-15); Troponin 5 2HR Delta 3.12 ABS# (0-10)
--- NOTE | 2025-03-16 20:53 | P.MISC_ITS ---
Miscellaneous Note Purpose of Documentation: Patient originally intended for observation admission stay had been evaluated to have brain bleed while still in the emergency room Note: Patient was a turnover from Dr. Lynn to tx Dr. Johnson for an apparent syncope e vent CT had been evaluated to have a brain bleed and needed further workup on that and care. Cannot do MRI at this time and does not have a neurosurgeon here or neurology in-house. I spoke with the emergency room doctor at this time who is going to be transferring the patient from the emergency room to a higher institution for the scope of practice patient has been transferred now to [facility] for evaluation and care for brain bleed. This patient also has been having headaches for the past 2 days prior to having the syncope today. So this patient is not being admitted by myself Dr. Johnson to any medical floor here at the [facility]. Patient is being transferred because of a possible brain bleed found in CT of the head. I have spoke to the family and the patient and they are all on the same page and they are okay to be transferred by the emergency room attending please note that there is no H&P for this patient from tx and is not discharge summary for this patient from [facility] patient is being transferred from emergency room.
[2025-03-16 21:40] LABS: Lactic Acid level (Lactate) 0.7 mmol/L (0.5-2.2)
== END 2025-03-16 22:30 | disposition short-term general hospital (02) ==
LOC: ER 18:41 → CSU 20:16
PROVIDERS: Family Medicine; Emergency Provider Emergency Medicine
DX: R55 Syncope and collapse (principal)
CPT/HCPCS: 36415; 70450; 71045; 72125; 80053; 82550; 83605; 83735; 84443; 84484; 85025; 93005; 99285